=== PATIENT | female | born 2000 | race Caucasian/White ===

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

== ENCOUNTER 2024-04-22 07:09 | Emergency (ER) | payer OTHER ==
[~2024-04-22] VITALS: Ht 160 cm; Wt 68.0 kg
[~2024-04-22 07:09] MED LIST changes: +DOXYCYCLINE100 M3 PO; +FLAGYL500 MG PO
[2024-04-22] MEDS ORDERED: Ondansetron Hydrochloride 4 MG/2 ML VIAL IV ONE (07:20)
[2024-04-22] MEDS ORDERED: FAMOTIDINE 50 ML IV ONE (07:20)
[2024-04-22] MEDS ORDERED: SODIUM CHLORIDE 0.9% 1,000 ML IV ONE (07:20)
[2024-04-22 07:35] LABS: HEMATOCRIT 42.8 % (37.0-47.0); MEAN CELL VOLUME 89.4 fl (81.0-99.0); MEAN CORPUSCULAR HGB 30.3 pg (27.0-31.0); MEAN CORPUSCULAR HGB CONC 33.9 g/dl (33.0-37.0); MEAN PLATELET VOLUME 9.3 fl (9.6-12.3); PLATELET COUNT AUTOMATED 210 10*3/uL (130-400); RED BLOOD COUNT 4.79 10*6/uL (4.10-5.10); RED CELL DISTRI WIDTH 11.9 % (0-14.5); WHITE BLOOD COUNT 14.2 10*3/uL (4.8-10.8)
[2024-04-22 07:38] LABS: MANUAL DIFF REFLEX YES
[2024-04-22 08:03] LABS: ALKALINE PHOSPHATASE 86 U/L (46-116); BUN 12 mg/dl (9-23); CHLORIDE 106 mmol/L (98-107); LIPASE 32 U/L (12-53); TOTAL PROTEIN 7.5 gm/dL (6.0-8.0)
[2024-04-22 08:16] LABS: SGPT/ALT 101 U/L (5-49)
[2024-04-22 08:24] LABS: PLATELET SUFFICIENCY NORMAL (NORMAL); TOTAL CELLS COUNTED 100 #CELLS
[2024-04-22] MEDS ORDERED: BUPROPION HYDR150 M3 PO (08:24)
[2024-04-22] MEDS ORDERED: PROPRANOLOL HCL20 MG PO (08:24)
[2024-04-22] MEDS ORDERED: SLYND4 MG PO (08:24)
[2024-04-22] MEDS ORDERED: HYDROXYZINE HCL25 MG PO (08:25)
[2024-04-22] MEDS ORDERED: SUMATRIPTAN SUC25 M1 PO (08:25)
[2024-04-22] MEDS ORDERED: BUSPAR5 MG PO (08:25)
[2024-04-22] MEDS ORDERED: VALTREX500 MG PO (08:26)
[2024-04-22] MEDS ORDERED: Loperamide Hydrochloride 2 MG CAP PO ONE (08:55)
[2024-04-22] MEDS ORDERED: PEPCID20 MG PO (08:57)
[2024-04-22] MEDS ORDERED: Ondansetron4 MG PO (08:57)
[2024-04-22 10:19] LABS: B-hCG (QUALITATIVE) NEGATIVE (NEGATIVE)
[2024-04-22 10:26] LABS: BILIRUBIN Negative (Negative); BLOOD Negative (Negative); CLARITY Clear (Clear); COLOR Yellow (Yellow); GLUCOSE Negative (Negative); KETONE 2+ (Negative); LEUKO ESTERASE Negative (Negative); NITRITE Negative (Negative); PH 7.5 (4.5-8.0); UROBILINOGEN 0.2 E.U./dl (0.0-1.0)
[2024-04-22 10:36] LABS: BACTERIA TRACE; MUCOUS 1+
== END 2024-04-22 19:08 | disposition home or self-care (01) ==
LOC: ED 07:09
PROVIDERS: Emergency Medicine
DX: K52.9 Noninfective gastroenteritis and colitis, unspecified (principal); K21.9 Gastro-esophageal reflux disease without esophagitis; G43.909 Migraine, unspecified, not intractable, without status migrainosus; Z88.0 Allergy status to penicillin; Z88.1 Allergy status to other antibiotic agents; Z88.8 Allergy status to other drugs, medicaments and biological substances; Z90.89 Acquired absence of other organs